=== PATIENT | male | born 1945 | race Caucasian/White ===

== ENCOUNTER 2017-03-17 21:33 | Emergency (ER) | payer OTHER ==
--- NOTE | 2017-03-17 21:56 | ERNOTE ---
TRA HPI - General Narrative: Pt states he was getting into the tub and slipped and hurt his leg. Now having difficulty walking on it. Stated Complaint: LEG INJURY Time Seen by Provider: 03/17/17 21:37 Source: patient Exam Limitations: no limitations - Immunization Immunization: IMMUNIZATION HX Immunizations Up to Date Yes - History of Present Illness Initial Comments: Pt slipped and fell getting into the shower, striking his left lower leg. He has difficulty walking and called EMS and was brought to ED. Occurred: just prior to arrival Severity: moderate Pain Location: lower extremity - left Method of Injury: fall Modifying Factors - (Improves): Reports: immobilization Modifying Factors - (Worsens): Reports: movement Loss of Consciousness: no loss of consciousness Associated Symptoms (Fall): Present: denies symptoms Allergies/Adverse Reactions: Allergies iodine Allergy (Verified 03/17/17 21:42) Home Medications: Home Medications Medication Instructions Recorded Last Taken Apixaban [Eliquis] 5 mg PO DAILY 03/17/17 Unknown Aspirin 81 mg PO DAILY 03/17/17 Unknown metFORMIN HCL [Metformin HCl ER] 500 mg PO BID 03/17/17 Unknown Review of Systems - Review of Systems Constitutional: Present: no symptoms reported EENTM: Present: no symptoms reported Respiratory: Present: no symptoms reported Cardiology: Present: no symptoms reported Gastrointestinal/Abdominal: Present: no symptoms reported Genitourinary: Present: no symptoms reported Musculoskeletal: Absent: back pain, joint pain Skin: Present: other - abrasion Neurological: Present: paresthesia - bilateral LE neuropathy, no change today Endocrine: Present: no symptoms reported Hematologic/Lymphatic: Present: no symptoms reported - Patient's Past Medical History Patient History - Medical: Diabetes Type 2 Patient History - Cardiac/Respiratory: Hypertension, Hyperlipidemia, Myocardial Infarction Patient History - Cancer: No Hx of Cancer Patient History - Surgical Procedures: Appendectomy, Back Surgery, Cardiac stent Patient History - Other: None - Social History Living Situations: spouse Abuse History: No History of abuse Psych History: No pertinent hx Smoking Status: Current every day smoker Have you smoked in the past 12 months: Yes Do you dip or chew tobacco: No Alcohol Use: sober Drug Use: none - Immunizations Immunizations Up to Date: Yes TRAUMA EXAM - Rosemarie Coma Score Best Eye Response (Rosemarie): (4) open spontaneously Best Verbal Response (Rosemarie): (5) oriented Best Motor Response ([place]): (6) obeys commands [place] Total: 15 - Physical Exam General Appearance: Present: WD/WN, no apparent distress Head Injury: Present: no evidence of injury Neurologic: Present: fibrous plasterer II-XII nml as tested, no motor/sensory deficits, alert , normal mood/affect Extremity Exam: Present: normal range of motion, bony-point tenderness - Anterior tibia without any obvious Neck Exam: Present: non-tender, full range of motion. Absent: paraspinous muscle tender, spinous processes tender, stiff neck Back Exam: Present: normal inspection, no CVA tenderness, no vertebral tenderness Eye Exam: right eye: normal inspection ENT Exam: Present: hearing grossly normal, no evidence of ENT injury Cardiovascular/Respiratory: Present: regular rate, rhythm, no M/R/G, decreased pulses - bilateral pedal pulses weak. Gastrointestinal/Abdominal: Present: normal bowel sounds. Absent: tenderness Skin Exam: Present: other - abrasion left anterior tibia no bleeding or open areas. - C-Spine cleared by: Neg history & exam - T, L-Spine cleared by: Neg hx and exam - Long Board: Back visualized ED Progress - PROGRESS/REASSESSMENT Condition: Unchanged Progress Note-Subjective: 03/18/17 01:28 discussed negative x-rays with the patient. discussed his weak pedal pulses and suggested that he talk with this primary physician about KITA's or other testing. Pt expressed understanding - VITAL SIGNS Patient's Vital Signs:: I have reviewed the patient's vital signs. Vital Signs - Last Taken Temp 36.9 C 03/17/17 21:36 Pulse 82 03/17/17 21:36 Resp 16 03/17/17 21:36 BP 150/89 03/17/17 21:36 Pulse Ox 97 03/17/17 21:36 - X-Ray X-Ray #1 XRAY: leg - tib/fib X-Ray Interpretation: Interp. by me X-Ray Comments: No fracture or dislocation noted. Departure - Departure Clinical Impression: Contusion Qualifiers: Encounter type: initial encounter Contusion area: lower leg Laterality: left Qualified Code(s): S80.12XA - Contusion of left lower leg, initial encounter Disposition: Home self-care Condition: Good Instructions: Contusion, [id number], Cryotherapy Additional Instructions: you may take ibuprofen or tylenol as needed for pain. Keep your leg elevated when you can for the next 3-4 days.
[2017-03-17 23:07] VITALS: BP 136/78
== END 2017-03-17 23:22 | disposition home or self-care (01) ==
LOC: ER 21:33
DX: S80.12XA Contusion of left lower leg, initial encounter (principal); Z79.01 Long term (current) use of anticoagulants; E11.9 Type 2 diabetes mellitus without complications; F17.200 Nicotine dependence, unspecified, uncomplicated; W18.2XXA Fall in (into) shower or empty bathtub, initial encounter